=== PATIENT | male | born 2000 | race Caucasian/White ===

== ENCOUNTER 2023-09-25 21:39 | Inpatient (IN) | payer BC ==
[~2023-09-25] VITALS: Ht 188 cm; Wt 104.2 kg
[2023-09-25 22:44] LABS: BASOPHILS % (AUTO) 0.3 % (0.0-2.0); EOSINOPHILS % (AUTO) 1.3 % (1.0-6.0); HEMATOCRIT 37.6 % (41-53); HEMOGLOBIN 12.9 g/dL (13.5-17.5); LYMPHOCYTES # (AUTO) 2.2 K/uL (1.0-4.8); LYMPHOCYTES % (AUTO) 22.8 % (22.0-44.0); MEAN CORPUSCULAR HEMOGLOBIN 31.1 pg (26.0-34.0); MEAN CORPUSCULAR HGB CONC 34.4 G/dL (31.0-37.0); MEAN CORPUSCULAR VOLUME 91 fL (80-100); MONOCYTES # (AUTO) 0.6 K/uL (0.1-1.0); MONOCYTES % (AUTO) 6.2 % (2.0-9.0); NEUTROPHILS # (AUTO) 6.6 K/uL (1.8-7.7); NEUTROPHILS % (AUTO) 69.4 % (40.0-70.0); PLATELET COUNT (AUTO) 325 K/uL (150-450); RED BLOOD CELL COUNT(AUTO) 4.16 MIL/uL (4.50-5.90); RED CELL DISTRIBUTION WIDTH 12.3 % (11.5-14.5); WHITE BLOOD COUNT (AUTO) 9.6 K/uL (4.5-11.0)
[2023-09-25 23:07] LABS: ANION GAP 7 mmol/L (8-16); CARBON DIOXIDE 30 mmol/L (22-29); CHLORIDE 102 mmol/L (98-107); CREATININE 0.68 mg/dL (0.60-1.30); GLOMERULAR FILTR. RATE CALC > 60 mL/min (>60); GLUCOSE,RANDOM 154 mg/dL (70-110); POTASSIUM 3.5 mmol/L (3.5-5.1); SODIUM SERUM 139 mmol/L (136-145); UREA NITROGEN, BLOOD 7 mg/dL (7-18)
[2023-09-25 23:13] LABS: ALANINE AMINOTRANSFERASE 45 U/L (12-78); ALBUMIN 3.7 g/dL (3.4-5.0); ALKALINE PHOSPHATASE 71 U/L (46-116); ASPARTATE AMINOTRANSFERASE 19 U/L (15-37); BILIRUBIN,TOTAL 0.4 mg/dL (0.1-1.0); TOTAL PROTEIN, SERUM 7.6 g/dL (6.4-8.2)
[2023-09-25 23:30] LABS: PH,URINE DRUG SCREEN 5.5 (5.0-8.0)
[2023-09-25 23:32] LABS: ALCOHOL, BLOOD (SERUM) < 3 mg/dL (0-10)
[2023-09-25 23:36] LABS: ALCOHOL, URINE DRUG SCREEN NEGATIVE (NEGATIVE); AMPHET/METH SCREEN,URINE NEGATIVE (NEGATIVE); BARBITURATE SCREEN, URINE NEGATIVE (NEGATIVE); BENZODIAZEPINES SCREEN,URINE NEGATIVE (NEGATIVE); CANNABINOID SCREEN,URINE POSITIVE (NEGATIVE); COCAINE SCREEN,URINE NEGATIVE (NEGATIVE); METHADONE SCREEN, URINE NEGATIVE (NEGATIVE); OPIATE SCREEN,URINE NEGATIVE (NEGATIVE); PHENCYCLIDINE SCREEN,URINE NEGATIVE (NEGATIVE)
[2023-09-26] MEDS ORDERED: LORazepam 2 MG TABLET PO PRN (00:15)
[2023-09-26] MEDS ORDERED: LOPERAMIDE HCL 2 MG CAPSULE PO PRN (00:15)
[2023-09-26] MEDS ORDERED: ACETAMINOPHEN 325 MG TABLET PO PRN (00:15)
[2023-09-26] MEDS ORDERED: PROMETHAZINE HCL 25 MG TABLET PO PRN (00:15)
[2023-09-26] MEDS ORDERED: MAG HYDROX/ALUMINUM HYD/SIMETH ES 30 ML SUSPENSION UDCUP PO PRN (00:15)
[2023-09-26] MEDS ORDERED: HydrOXYzine PAMOATE 50 MG CAPSULE PO PRN (00:15)
[2023-09-26] MEDS ORDERED: MAGNESIUM HYDROXIDE SUSPENSION 30 ML UDCUP PO PRN (00:15)
[2023-09-26] MEDS ORDERED: OLANZapine 5 MG RAPDIS TABLET PO PRN (00:15)
[2023-09-26] MEDS ORDERED: GuaiFENesin/D-METHORPHAN [SUGAR-FREE] 200-20MG/10 ML SYRUP UDCUP PO PRN (00:15)
[2023-09-26] MEDS: TUBERCULIN, PURIFIED PROTEIN DERIVATIVE 5 TU/0.1 ML SYRINGE ID ONE (01:05)
[2023-09-26] MEDS: ZOLPIDEM TARTRATE 10 MG TABLET PO PRN (03:44)
[2023-09-26 07:10] LABS: COVID AG,FIA SOURCE NASAL SWAB
[2023-09-26 07:41] LABS: SARS-COV2 (COVID) ANTIGEN,FIA Negative (Negative)
[2023-09-26] MEDS: THIAMINE 100 MG TABLET PO SCH (08:56)
[2023-09-26] MEDS: MULTIVITAMINS WITH MINERALS, THERAPEUTIC TABLET PO SCH (08:56)
[2023-09-26] MEDS: FOLIC ACID 1 MG TABLET PO SCH (08:56)
[2023-09-26] MEDS: FLUoxetine HCL 20 MG CAPSULE PO SCH (09:16)
[2023-09-26 15:02] VITALS: BP 143/72; PULSE 90; RESP 17; TEMP 97.5
[2023-09-26 20:24] VITALS: BP 141/77; PULSE 98; RESP 18; TEMP 97.9
[2023-09-26] MEDS: NALTREXONE HCL 50 MG TABLET PO SCH (20:47)
[2023-09-26] MEDS: MELATONIN 5 MG TABLET PO SCH (20:47)
[2023-09-27] MEDS: ESTRADIOL 1 MG TABLET PO SCH ×2 (08:07→23:17)
[2023-09-27] MEDS: SPIRONOLACTONE 50 MG TABLET PO SCH (08:07)
[2023-09-27 08:16] LABS: CHOL/HDL RATIO 3.5 (4.2-7.3)
[2023-09-27 08:19] LABS: HEMOGLOBIN A1C 6.7 % (3.8-5.6)
[2023-09-27] MEDS ORDERED: GLUCAGON,HUMAN RECOMBINANT 1 MG VIAL IM PRN (09:00)
[2023-09-27] MEDS ORDERED: INSULIN LISPRO 100 UNITS/ML SQ PRN (09:00)
[2023-09-27 09:58] VITALS: BP 138/83; PULSE 75; RESP 18; TEMP 97
[2023-09-27 17:50] LABS: GLUCOMETER DEV NAME(LOC) 3EX.2; GLUCOSE,POINT OF CARE 126 MG/DL (70-110)
[2023-09-27] MEDS: PROGESTERONE, MICRONIZED 100 MG CAPSULE PO SCH (21:27)
[2023-09-27 23:10] VITALS: BP 132/80; PULSE 81; RESP 18; TEMP 98.7
[2023-09-28 06:10] LABS: GLUCOMETER DEV NAME(LOC) 3EX.2; GLUCOSE,POINT OF CARE 150 MG/DL (70-110)
[2023-09-28 09:31] VITALS: BP 129/88; PULSE 70; RESP 18; TEMP 97.9
[2023-09-28] MEDS ORDERED: OMEG-135 PO (11:23)
[2023-09-28] MEDS ORDERED: FLUO-418 PO (11:23)
[2023-09-28] MEDS ORDERED: NALT50TA33 PO (11:23)
[2023-09-28] MEDS ORDERED: MELA5TAB40 PO (11:23)
== END 2023-09-28 17:00 | disposition home or self-care (01) | DRG 885 ==
LOC: EMS 21:39 → 3EI 09-26 12:23
PROVIDERS: ADMIT Psychiatry & Neurology Psychiatry; ATTEND Psychiatry & Neurology Psychiatry
PROC: GZHZZZZ Group Psychotherapy (ICD-10-PCS; principal; 2023-09-26)
PROC: GZ51ZZZ Individual Psychotherapy, Behavioral (ICD-10-PCS; 2023-09-26)
DX: F33.2 Major depressive disorder, recurrent severe without psychotic features (principal); R45.851 Suicidal ideations; F12.90 Cannabis use, unspecified, uncomplicated; F43.10 Post-traumatic stress disorder, unspecified; Z20.822 Contact with and (suspected) exposure to COVID-19; D64.9 Anemia, unspecified; R73.9 Hyperglycemia, unspecified; Z90.49 Acquired absence of other specified parts of digestive tract
CPT/HCPCS: 80053; 80061; 80307; 83036; 85025; 86592; 99285; G0480; Q9967